=== PATIENT | male | born 1965 | race Caucasian/White ===

== ENCOUNTER → 2022-12-19 | Outpatient (CLI) | payer BC, SELFPAY ==
[2022-12-19 11:47] LABS: ALB/GLOB Ratio 1.2 RATIO (0.9-2.4); AST(SGOT) 26 U/L (15-37); Alanine Aminotransfer ALT/SGPT 45 U/L (16-61); Albumin, Serum 4.1 g/dL (3.2-5.0); Alkaline Phosphatase 67 U/L (45-117); Anion Gap 6 (5-15); BUN 20 mg/dL (7-18); BUN/Creat Ratio 16.9 RATIO (10-20); Basophil# 0.09 X10^3/uL; Calcium,Total 9.6 mg/dL (8.5-10.1); Chloride 107 mmol/L (98-107); Cholesterol 182 mg/dL (200); Creatinine, Serum 1.18 mg/dL (0.70-1.30); EST Glomerular Filtration Rate 68 mL/min (>60); Eosinophil# 0.25 X10^3/uL; Eosinophils% 2.9 % (0-5); Est Glom Filt Rate - Afr Amer 82 mL/min (>60); Globulin 3.5 g/dL (2.2-4.2); Glucose 78 mg/dL (74-106); Hematocrit 46.3 % (40-54); Hemoglobin 15.8 g/dL (13.0-16.5); High Density Lipoprotein 37 mg/dL; Lymphocyte % 27.8 % (19-41); Mean Corp Hgb Conc 34.1 g/dL (32-36); Mean Corpuscular Hgb 29.7 pg (27.0-32.0); Mean Platelet Vol. 12.6 fl (6.2-12.0); Monocyte# 0.83 X10^3/uL; Monocyte% 9.6 % (0-10); NRBC Flagged by Analyzer 0 % (0-5); Neutrophil # 5.02 X10^3/uL (2.7-7.7); Neutrophil % 58.2 % (47-70); Platelet Count 160 K/mm3 (150-450); Potassium 3.8 mmol/L (3.5-5.1); Protein, Total 7.6 g/dL (6.4-8.2); RBC Distribution Width CV 12.3 % (11.6-14.6); RBC Distribution Width SD 39.2 fl (35.1-43.9); Red Blood Count 5.32 M/mm3 (4.6-6.2); Sodium Level 142 mmol/L (136-145); Triglycerides 179 mg/dL; Very Low Density Lipoprotein 36 mg/dL (5-40); White Blood Count 8.6 K/mm3 (4.4-11.0)
[2022-12-19 12:34] LABS: Hemoglobin A1c 5.3 % (3.8-5.6)
[2022-12-21 06:09] LABS: PSA, Total 1.4 ng/mL (0.0-4.0)
== END | disposition home or self-care (01) ==
LOC: LABSPEC 11:13
PROVIDERS: Referring Provider Nurse Practitioner Family; Visit Provider Nurse Practitioner Family
DX: I10 Essential (primary) hypertension (principal)
CPT/HCPCS: 80053; 80061; 83036; 84153; 85025

== ENCOUNTER → 2024-03-11 | Outpatient (CLI) | payer BC, SELFPAY ==
[2024-03-11 15:25] LABS: Hematocrit 47.1 % (40-54); Hemoglobin 15.6 g/dL (13.0-16.5); Mean Corp Hgb Conc 33.1 g/dL (32-36); Mean Corpuscular Hgb 29.5 pg (27.0-32.0); Mean Platelet Vol. 12.7 fl (6.2-12.0); Platelet Count 153 K/mm3 (150-450); RBC Distribution Width CV 12.5 % (11.6-14.6); RBC Distribution Width SD 40.9 fl (35.1-43.9); Red Blood Count 5.29 M/mm3 (4.6-6.2); White Blood Count 8.8 K/mm3 (4.4-11.0)
[2024-03-11 16:21] LABS: ALB/GLOB Ratio 1.3 RATIO (0.9-2.4); AST(SGOT) 34 U/L (15-37); Alanine Aminotransfer ALT/SGPT 57 U/L (16-61); Albumin, Serum 4.2 g/dL (3.2-5.0); Alkaline Phosphatase 67 U/L (45-117); Anion Gap 10 (5-15); BUN 21 mg/dL (7-18); BUN/Creat Ratio 17.8 RATIO (10-20); Chloride 108 mmol/L (98-107); Cholesterol 203 mg/dL (200); Creatinine, Serum 1.18 mg/dL (0.70-1.30); EST Glomerular Filtration Rate 68 mL/min (>60); Est Glom Filt Rate - Afr Amer 82 mL/min (>60); Globulin 3.2 g/dL (2.2-4.2); Glucose 79 mg/dL (74-106); High Density Lipoprotein 40 mg/dL; Protein, Total 7.4 g/dL (6.4-8.2); Sodium Level 142 mmol/L (136-145); Triglycerides 215 mg/dL; Very Low Density Lipoprotein 43 mg/dL (5-40)
[2024-03-11 16:59] LABS: Hemoglobin A1c 5.3 % (3.8-5.6)
[2024-03-11 17:27] LABS: Vitamin B12 430 pg/mL (211-911); Vitamin D,25 Hydroxy 26.9 ng/mL
[2024-03-13 10:09] LABS: PSA, Total <0.1 ng/mL (0.0-4.0)
[2024-03-13 13:08] LABS: HOMOCYSTEINE 23.2 umol/L (0.0-14.5)
== END | disposition home or self-care (01) ==
PROVIDERS: Referring Provider Nurse Practitioner Family; Visit Provider Nurse Practitioner Family
DX: Z13.6 Encounter for screening for cardiovascular disorders (principal); Z13.1 Encounter for screening for diabetes mellitus; I10 Essential (primary) hypertension
CPT/HCPCS: 80053; 80061; 82306; 82607; 83036; 83090; 84153; 85027

== ENCOUNTER → 2024-12-02 | Outpatient (CLI) | payer BC, SELFPAY ==
--- NOTE | 2024-12-02 16:22 | RAD_ITS ---
PROCEDURE: SHOULDER MIN 2 VIEWS 12/02/2024 REASON FOR EXAM: SHOULDER PAIN TECHNIQUE: Four views left shoulder COMPARISON: None available FINDINGS: No fracture or dislocation. The joint spaces appear within limits. No osseous lesion identified. RAD/Shoulder min 2 Views IMPRESSION: Study appears within limits. Reading Location: [id number]
--- NOTE | 2024-12-02 16:22 | RAD_ITS ---
EXAM: Elbow minimum three views CLINICAL HISTORY: Pain in elbow COMPARISON: None available TECHNIQUE: Three views left elbow FINDINGS: Findings are consistent with a supracondylar spur of the humerus seen on the lateral view, anatomic variant. No fracture, dislocation or joint effusion. The joint spaces appear within limits. RAD/Elbow min 3 Views IMPRESSION: Study appears within limits as above. Reading Location: [id number]
== END | disposition home or self-care (01) ==
PROVIDERS: Referring Provider Nurse Practitioner Family; Visit Provider Nurse Practitioner Family
DX: M25.512 Pain in left shoulder (principal); M25.522 Pain in left elbow
CPT/HCPCS: 73030; 73080